=== PATIENT | male | born 1995 | race African-American/Black ===

== ENCOUNTER 2024-05-12 12:55 | Emergency (ER) | payer MEDICAID ==
[~2024-05-12] VITALS: Ht 185.4 cm; Wt 86.0 kg
[2024-05-12 13:04] VITALS: O2SAT 100
[2024-05-12] MEDS: LIDOCAINE HCL/PF 1% 10 MG/ML 5ML VIAL INFIL ONE (14:40)
[2024-05-12] MEDS: BACITRACIN ZINC OINT UDPKT TOP ONE (14:40)
[2024-05-12] MEDS ORDERED: CEPH500C2 MT (16:47)
[2024-05-12 17:07] VITALS: BP 125/83; PULSE 83; RESP 18; TEMP 36.83628; O2SAT 97
== END 2024-05-12 17:09 | disposition home or self-care (01) ==
LOC: ER 13:12
DX: S61.213A Laceration without foreign body of left middle finger without damage to nail, initial encounter (principal); X58.XXXA Exposure to other specified factors, initial encounter; Y93.89 Activity, other specified; Y92.89 Other specified places as the place of occurrence of the external cause; Y99.8 Other external cause status
CPT/HCPCS: 73130; 12001; 99283; J3490; Z7610

== ENCOUNTER 2024-05-31 14:14 | Emergency (ER) | payer MEDICAID, OTHER ==
[~2024-05-31] VITALS: Ht 182.9 cm; Wt 85.0 kg
[~2024-05-31 14:14] MED LIST: CEPH500C2 MT
[2024-05-31 14:27] VITALS: BP 117/60; PULSE 80; RESP 16; TEMP 98.4; O2SAT 100
== END 2024-05-31 17:22 | disposition home or self-care (01) ==
LOC: ER 14:14
DX: S61.213D Laceration without foreign body of left middle finger without damage to nail, subsequent encounter (principal); I10 Essential (primary) hypertension; X58.XXXD Exposure to other specified factors, subsequent encounter
CPT/HCPCS: 99281